=== PATIENT | male | born 1960 | race Caucasian/White ===

== ENCOUNTER 2025-09-23 13:44 | Observation (INO) | payer OTHER, MEDICARE, SELFPAY ==
--- NOTE | 2025-09-23 13:50 | XR_ITS ---
EXAMINATION: AP chest single view TECHNIQUE: Portable AP sitting chest single view Date and time: September 23, 2025, 1413 hours INDICATIONS: Shortness of breath today. FINDINGS: Mild prominence left ventricle. No pneumonia or pulmonary edema. Lordotic chest IMPRESSION: No active disease
--- NOTE | 2025-09-23 13:50 | EKG_ITS ---
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
--- NOTE | 2025-09-23 13:50 | XR_ITS ---
Examination: CTA carotids with intravenous contrast CTA brain, head with intravenous contrast. 2-D sagittal, coronal reconstructions. 3-D reconstructions. Exam date and time: September 23, 2025, 1406 hours INDICATIONS: Stroke alert today, onset focal neurologic deficit CTDI: vol (mGy) 25.3 DLP: (mGycm) 455 Technique: Multiple CTA axial brain, head carotid images post intravenous contrast injection 75 cc, [id number]. 2-D sagittal, coronal reconstructions. 3-D reconstructions, 3-D post processing including vascular maximum intensity projection images. Low dose protocols were performed. One or more of the following dose reduction techniques were used; automated exposure control, adjustment of the mA and/or KV according to patient size, use of iterative reconstruction technique. Findings: No common carotid carotid bifurcation or significant internal carotid artery stenoses Dominant left vertebral artery in the neck with no significant stenoses Intracranial vertebral arteries basilar artery posterior cerebral branches fill with no large vessel occlusions Petrous Dexasol portions internal carotid arteries M1 segments middle cerebral arteries middle cerebral artery trifurcation vessels and anterior cerebral arteries fill with no large vessel occlusions IMPRESSION: No significant neck arterial stenoses No cerebral large vessel arterial occlusions or thrombus
--- NOTE | 2025-09-23 13:50 | XR_ITS ---
Examination: CT brain head without contrast. 2-D sagittal coronal reconstructions Date and time of exam: September 23, 2025, 1357 hours INDICATIONS: Stroke alert, onset focal neurologic deficit including left-sided facial numbness and left arm weakness onset today CTDI: vol (mGy): 53.8 DLP: (mGycm): 1004 Technique: Multiple CT axial sections of the brain have been obtained, 5 mm slice thickness. Contrast has not been administered. 2-D sagittal, coronal reconstructions have been obtained Low dose protocols were performed. One or more of the following dose reduction techniques were used; automated exposure control, adjustment of the mA and/or KV according to patient size, use of iterative reconstruction technique. Findings: No significant ventricular enlargement. Intra-axial or extra-axial hemorrhage density is not seen. No mass effect or midline shift Basal cisterns are not remarkable. Fourth ventricle is midline. Cranial vault intact. Impression: Negative for acute hemorrhage, mass effect or midline shift
--- NOTE | 2025-09-23 13:51 | EDNOTE_ITS ---
<Statement entered by Stacia Blandon MD - 09/30/25 14:17> As co-signing physician, I was present and available for consult prn. I concur with the plan and care as documented by the midlevel provider. ED General RME/HPI General Chief complaint: Weakness Stated complaint: NUMBNESS L) ARM, FACE, TONGUE, WEAKNESS Time Seen by Provider: 09/23/25 13:49 Arrival date/time: 09/23/25 13:44 CC: Left facial numbness tingling left arm numbness and tingling onset at 1335, upon initial assessment at 1351 the majority has resolved. Patient describes the left arm also as heaviness . This has resolved facial tingling has resolved but still has residual tingling in the left arm. No prior history of similar events has a history of hypertension hypercholesterolemia and diabetes does not take blood thinners. The patient's 's report the patient having significant confusion while driving losing directions in an area that they are well familiar with all within 5 to 6 minutes prior to pulling over and telling his he need to go to the hospital. continues to report the patient made at approximately 5 attempts on the phone after giving up driving to a phone number that is typically easy for him to dial. Related Data Home Medications ?Medication ?Instructions ?Recorded ?Confirmed atenolol 25 mg tablet (Tenormin) 25 mg PO HS #0 tabs 0 06/03/17 02/18/23 loratadine 10 mg tablet (Claritin) 10 mg PO HS #0 tabs 06/03/17 02/18/23 inulin 2 gram chewable tablet 2 tab PO HS ##0 10/14/17 02/18/23 (Fiber Gummies) metformin 500 mg tablet 500 mg PO BID 01/26/2202/18 pravastatin 10 mg tablet 10 mg PO DAILY 01/26/2201/28 cholecalciferol (vitamin D3) 25 25 mcg PO QDAY 2 02/18/23 mcg (1,000 unit) capsule (Vitamin D3) omega 9-nlq-rto-fish oil 1,000 mg 1 cap PO QDAY 02/18/23 (120 mg-180 mg) capsule (Fish Oil) Previous Rx's ?Medication ?Instructions ?Recorded pantoprazole 40 mg tablet,delayed 40 mg PO BID #60 tab s 08/07/22 release (Protonix) Allergies Allergy/AdvReac Type Severity Reaction Status Date / Time prochlorperazine Allergy Severe TONIC Verified 09/23/25 13:45 CLONIC MUSCLE SPASM Review of Systems Review of Systems Narrative Review of Systems: GEN: No fever, no chills, no weight loss EYES: No discharge, no visual changes, no pain HEENT: No ear pain, no congestion, no sore throat PULM: No shortness of breath, no cough, no congestion CV: No chest pain, no dyspnea on exertion, no palpitations GI: No nausea, no vomiting, no diarrhea, no pain, no constipation : No frequency, no urgency, no dysuria MUSC/SKEL: No joint pain, no back pain SKIN: No rash PSYCH: No hallucinations, no depression HEME/LYMPH: No easy bleeding or bruising tendencies NEURO: No weakness, no headache, no dizziness, no blurred vision, no balance issues Past Medical History Past Medical History NEUROLOGIC: Positive Neurological Disorders and Meningitis; Negative Seizures CARDIAC: Positive Cardiac Disorders, Hypercholesterolemia and Hypertension; Negative Congestive Heart Failure, Edema, Cellulitis or Varicose Veins RESPIRATORY: Negative Chronic Obstructive Pulmonary Disease (COPD) or Sleep Ap alexandrea GASTROINTESTINAL: Positive Gastrointestinal Disorders, Gall Bladder Disease and Ulcer; Negative Hepatitis GENITOURINARY: Positive Genitourinary Disorders and Kidney Stones; Negative Renal Disease MUSCULOSKELETAL: Positive Musculoskeletal Disorders and Fractures ENDOCRINE: Negative Endocrine Disorders, Diabetes Mellitus Type 1 or Diabetes Mellitus Type 2 HEMATOLOGIC: Negative Blood Disorders OTHER HISTORY: Positive Hospitalization, Chicken Pox, Measles and Mumps; Negative Autoimmune Disease, Shingles, Falls, Blood Transfusions, Anesthesia Reactions, Chemotherapy, Radiation Therapy, MRSA or Cancer Family History FAMILY HISTORY: Positive Family Respiratory Disorders, Family Cardiac Disorders and Family Surgery; Negative Family Psychiatric Problems, Family Gastrointestinal Problems, Family Cancer or Family Anesthesia Reaction Surgical History SURGICAL: Negative Pacemaker Social History SMOKING STATUS: Never smoker ED Exam Narrative Physical exam: [General: Not in any acute distress Head normocephalic HEENT: Eyes pupils are PERRLA EOMs are intact mouth pink dry membranes uvula is midline swallow symmetrical phonation is normal. Nose no rhinorrhea all other subsystems of HEENT are within acceptable limits Neck is supple nontender, no JVD no edema Chest equal chest rise nontender to palpation Respiratory: Clear to auscultation no wheezes crackles or rubs CV: Rate rhythm is regular no murmurs rubs or clicks Abdomen is soft nontender no masses positive bowel sounds all 4 quadrants Back: No CVA tenderness no spinous process tenderness from cervical spine thoracic and lumbar spine Skin: Intact no petechiae rash induration ulceration or crepitus Extremities: Moving all extremity against resistance cap refill less than 2 seconds neurosensory intact Neuro: Awake alert oriented x3 Glascow coma 15 no focal deficits] Course Course Course Narrative: Tell your neurologist was concerned that this was a seizure once the patient he had MRI EEG no aspirin and no tPA Reassessment of the patient at 1500, the the patient is returned to baseline with no complaints of tingling or numbness in the left face or left hand, also no confusion has been observed by at bedside. Will admit for stroke Quality Measures none Orders Category Date Time Status Bedside Blood Glucose NOW Care 09/23/25 13:50 Active Crate Builder NOW Care 09/23/25 13:50 Active Continuous Pulse Oximetry NOW Care 09/23/25 13:50 Completed EKG (ED ONLY) *Do not use* NOW Care 09/23/25 13:50 Completed In and Out Catheter NEEDED Care 09/23/25 13:50 Active Insert IV NOW Care 09/23/25 13:50 Active NIH Stroke Scale now Care 09/23/25 13:50 Active NPO NOW Care 09/23/25 13:50 Active Nurse Swallow Screen x1 Care 09/23/25 13:50 Active Consult to Neurology / Tele-Neurology Routine Cons 09/23/25 13:[address] angio stroke protocol Stat Exams 09/23/25 13:[address] stroke protocol Stat Exams 09/23/25 13:50 Completed EKG (ED Only) Stat Exams 09/23/25 13:50 Draft XR chest 1V portable Stat Exams 09/23/25 13:50 Completed CBC Stat Lab 09/23/25 14:13 Completed Comprehensive Metabolic Panel Stat Lab 09/23/25 14:13 Completed Drug Screen,Urine Stat Lab 09/23/25 14:38 Received HCG Titer if Positive Stat Lab 09/23/25 14:13 Completed Magnesium Stat Lab 09/23/25 14:13 Completed Partial Thromboplastin Time Stat Lab 09/23/25 14:13 Completed Prothrombin Time with INR Stat Lab 09/23/25 14:13 Completed Troponin I Stat Lab 09/23/25 14:13 Completed Urinalysis, C/S if Indicated Stat Lab 09/23/25 14:38 Completed Labetalol IV [Trandate IV] Med 09/23/25 13:50 Active 10 mg IVP Q15M PRN Ondansetron Inj [Zofran Inj] Med 09/23/25 13:50 Active 4 mg IVP Q4HR PRN Oxygen Delivery NOW RT 09/23/25 13:50 Active Vital Signs Vital signs: Vital Signs Pulse Rate 92 09/23/25 14:08 Respiratory Rate 20 09/23/25 14:08 Blood Pressure 161/96 H 09/23/25 14:08 Pulse Oximetry (%) 95 09/23/25 14:08 Oxygen Delivery Method Room Air 09/23/25 14:08 Discharge Plan Plan Patient Disposition: Other Care w/in Hosp ([facility]) Prescriptions/Referrals Prescriptions/Med Rec: No Action atenolol [Tenormin] 25 MG tablet 25 mg PO HS Qty: 0 loratadine [Claritin] 10 MG tablet 10 mg PO HS Qty: 0 Fiber Gummies 2 GM tablet,chewable 2 tab PO HS Qty: 0 metformin 500 mg Tablet 500 mg PO BID pravastatin 10 mg Tablet 10 mg PO DAILY cholecalciferol (vitamin D3) [Vitamin D3] 25 mcg (1,000 unit) Capsule 25 mcg PO QDAY pantoprazole [Protonix] 40 mg tablet,delayed release (DR/EC) 40 mg PO BID Qty: 60 0RF omega 9-qdk-rkr-fish oil [Fish Oil] 1,000 mg (120 mg-180 mg) Capsule 1 cap PO QDAY Referrals: No Primary/Family,Physician [Primary Care Provider] - In 1 week Problem List Clinical Impression: Brain TIA Patient/Caregiver Discharge Instructions Print Language: Swazi Stand Alone Forms: Disha Award Info., Patient Portal Info Letter 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 Labs Lab(s) Interpretation(s): CBC shows no leukocytosis mild anemia with a hemoglobin of 12.1 and hematocrit of 34.8. No thrombocytopenia Coags show a PT of 13.7 INR 1.3 PTT of 27.3 CMP shows potassium 3.3 chloride of 110 BUN is 7 calcium of 7.6 no transaminitis or T. bili elevation. Urine is negative for UTI Imaging Imaging interpretation: interpreted by me Imaging Interpretation(s): CT of the head is negative CTA of the head is negative for LVO. Chest x-ray is unremarkable. Medication Administration(s) Medication Administration History Labetalol HCl (Labetalol Inj 5 Mg/Ml Vial 20 Ml) 10 mg IVP Q15M PRN PRN Reason: HYPER Ondansetron HCl (Ondansetron Inj 2 Mg/Ml Inj 2 Ml) 4 mg IVP Q4HR PRN PRN Reason: NAUSEA OR VOMITING Stop: 10/23/25 13:49
--- NOTE | 2025-09-23 13:52 | PC.NURSE ---
STROKE ALERT CALLED [phone].
--- NOTE | 2025-09-23 13:54 | PC.NURSE ---
Dr. Livier Souza on tele monitor talking with pt. Pt. answering questions appropriately.
--- NOTE | 2025-09-23 13:55 | PC.NURSE ---
Pt. here taken straight to CT via gurney from triage, pt. states he was just driving and felt left arm heaviness, tingling and numbness to the left side of his face, pt. states no issues with left leg, pt.'s passenger states pt. was confused driving and was supposed to drive home and was headed away from home.
[2025-09-23 14:08] VITALS: BP 161/96; PULSE 92; RESP 20; O2SAT 95
--- NOTE | 2025-09-23 14:11 | PC.NURSE ---
PATIENT RETURNED FROM CT AT THIS TIME
--- NOTE | 2025-09-23 14:20 | PD.TNEURO ---
Tele Neuro Consultation Consultation Date 09/23/25 Most Recent Vital Signs Last Vital Signs Pulse 92 09/23/25 14:08 Resp 20 09/23/25 14:08 BP 161/96 H 09/23/25 14:08 Pulse Ox 95 09/23/25 14:08 O2 Del Method Room Air 09/23/25 14:08 Consultation Narrative [facility] Tele[facility]rology Consult Services Patient Name:???TORRIE DAVIS Date of :???1960 Identification Number:??? Date of Service:???09/23/2025 13:49:31 Diagnosis:?G45.9 - Transient cerebral ischemic attack, unspecified Impression: ?Symptoms are suggestive of a possible right cortical focal seizure, given the presence of a metallic taste (aura) and transient confusion before and after the episode. TIA also remains a possibility. ? ?I recommend brain MRI to evaluate for any acute cortical lesion or underlying structural abnormality. ? ?I recommend EEG to assess for epileptiform activity and support the diagnosis of a focal seizure. ? ?CT head and CTA showed no acute intracranial abnormality and no large vessel occlusion. ? ?Patient is not a candidate for TNK as symptoms are improving and presentation is not consistent with disabling stroke. ? ?No aspirin or Plavix recommended at this time. ? ?Blood pressure is normal; permissive hypertension is not indicated. Our recommendations are outlined below. Recommendations: ? Stroke/Telemetry Floor ? Neuro Checks ? Bedside Swallow Eval ? DVT Prophylaxis ? IV Fluids, Normal Saline ? Head of Bed 30 Degrees ? Euglycemia and Avoid Hyperthermia (PRN Acetaminophen) Advanced Imaging: CTA Head and Neck Completed. LVO:No Patient is not a candidate for ANTIONE Metrics: Last Known Well: 09/23/2025 13:15:00 Dispatch Time: 09/23/2025 13:49:31 Arrival Time: 09/23/2025 13:55:00 Initial Response Time: 09/23/2025 13:51:34Symptoms: left tingling . Initial patient interaction: 09/23/2025 14:01:01 NIHSS Assessment Completed: 09/23/2025 14:11:41Patient is not a candidate for Thrombolytic. Thrombolytic Medical Decision: 09/23/2025 14:11:44Patient was not deemed candidate for Thrombolytic because of following reasons: Resolved symptoms . CT Head: I personally reviewed all the CT images that were available to me and it showed: no acute changes Primary Provider Notified of Diagnostic Impression and Management Plan on: 09/23/2025 14:05:39 History of Present Illness:Patient is a 64 year old Male. Patient was brought by private transportation with symptoms of left tingling . The patient experienced an acute onset of neurological symptoms approximately 20 minutes prior to evaluation, which began while driving. The episode was characterized by left arm heaviness, tingling of the left side of the face, and a metallic taste in the mouth. These symptoms were transient and have been improving at the time of assessment. The patient also demonstrated some confusion during and after the episode, which has since begun to resolve. There was no report of headache, visual changes such as blurred vision, or other systemic symptoms. The presence of both motor and sensory symptoms lateralized to the left, along with a positive sensory aura (metallic taste), and postictal confusion raises concern for a possible focal neurological event. The patient has a medical history significant for hypertension and diabetes mellitus, which are vascular risk factors; however, the clinical picture is not typical for acute ischemic stroke. There were no signs of ongoing neurologic deficit on examination at the time of consult, and the patient's blood pressure was within normal range. No history of similar episodes was noted, and no seizure history was mentioned. There were no signs of trauma or other secondary causes identified. Past Medical History: ?Hypertension ?Diabetes Mellitus ?There is no history of Atrial Fibrillation ?There is no history of Stroke ?There is no history of Seizures Medications: No Anticoagulant use? No Antiplatelet use Reviewed EMR for current medications Allergies:? Reviewed Social History: Patient Is: Smoking: No Alcohol Use: No Drug Use: No Family History: There is no family history of premature cerebrovascular disease pertinent to this consultation ROS : 14 Points Review of Systems was performed and was negative except mentioned in HPI. Past Surgical History: There Is No Surgical History Contributory To Today?s Visit Examination: BP(161/96),?Pulse(85),?Blood Glucose(125) 1A: Level of Consciousness - Alert; keenly responsive?+ 0 1B: Ask Month and Age - Both Questions Right?+ 0 1C: Blink Eyes & Squeeze Hands - Performs Both Tasks?+ 0 2: Test Horizontal Extraocular Movements - Normal?+ 0 3: Test Visual Sutton - No Visual Loss?+ 0 4: Test Facial Palsy (Use Grimace if Obtunded) - Normal symmetry?+ 0 5A: Test Left Arm Motor Drift - No Drift for 10 Seconds?+ 0 5B: Test Right Arm Motor Drift - No Drift for 10 Seconds?+ 0 6A: Test Left Leg Motor Drift - No Drift for 5 Seconds?+ 0 6B: Test Right Leg Motor Drift - No Drift for 5 Seconds?+ 0 7: Test Limb Ataxia (FNF/Heel-Lozano) - No Ataxia?+ 0 8: Test Sensation - Normal; No sensory loss?+ 0 9: Test Language/Aphasia - Normal; No aphasia?+ 0 10: Test Dysarthria - Normal?+ 0 11: Test Extinction/Inattention - No abnormality?+ 0 NIHSS Score:?0 Pre-Morbid Modified Q[place]man Scale: 0 Points = No symptoms at all Spoke with :?Dr. Banuelos This consult was conducted in real time using interactive audio and video technology. Patient was informed of the technology being used for this visit and agreed to proceed. Patient located in hospital and provider located at home/office setting. Patient is being evaluated for possible acute neurologic impairment and high probability of imminent or life-threatening deterioration. I spent total of 40 minutes providing care to this patient, including time for face to face visit via telemedicine, review of medical records, imaging studies and discussion of findings with providers, the patient and/or family. Dr Livier Souza [facility] For Inpatient follow-up with [facility] physician please call [facility] at . As we are not an outpatient service for any post hospital discharge needs please contact the hospital for assistance. If you have any questions for the [facility] physicians or need to reconsult for clinical or diagnostic changes please contact us via [facility] at . Non-radiologist review of imaging performed to assist with emergent clinical decision-making. Remote physician workstations do not possess the same resolution, calibration, or diagnostic capabilities as hospital-based radiology reading stations, and formal radiologist read is necessary. Signature :Rob Souza
[2025-09-23 14:23] LABS: Basophils # (Auto) 0.1 Thou/mm3 (0.0-0.2); Basophils % (Auto) 1 % (0-2.5); Eosinophils # (Auto) 0.3 Thou/mm3 (0.0-0.5); Eosinophils % (Auto) 4 % (0-10); Hematocrit 34.8 % (41.0-53.0); Hemoglobin 12.1 g/dL (13.5-16.0); Immature Granulocytes Auto 0.03 Thou/mm3 (0.00-0.00); Lymphocytes # (Auto) 1.4 Thou/mm3 (1.0-4.8); Lymphocytes % (Auto) 18 % (10-50); Mean Corpuscular HGB Conc 34.8 g/dl (31.0-37.0); Mean Corpuscular Hemoglobin 31.0 pg (25.0-35.0); Mean Corpuscular Volume 89 fL (80-100); Monocytes # (Auto) 0.9 Thou/mm3 (0.0-0.8); Monocytes % (Auto) 11 % (0-12); Neutrophils # (Auto) 4.9 Thou/mm3 (1.8-7.7); Neutrophils % (Auto) 65 % (37-80); Nucleated Red Blood Cell # 0.00 Thou/mm3 (0.00-0.00); Nucleated Red Blood Cell % 0 /100 WBC (0); Platelet Count 205 Thou/mm3 (140-440); RDW Standard Deviation 39.8 fL (35.1-43.9); Red Blood Count 3.90 Miln/mm3 (4.50-5.90); White Blood Count 7.5 Thou/mm3 (3.8-10.6)
[2025-09-23 14:30] VITALS: BP 147/92; PULSE 96; RESP 17; TEMP 36.8; O2SAT 95
--- NOTE | 2025-09-23 14:31 | PC.NURSE ---
Pt. states yesterday he got the Covid vaccine and PNA vaccine. Pt. states when he felt the numbness and tingling to his face he had a metal taste in his mouth. Pt.'s spouse states prior to the numbness and tingling pt. was confused while driving.
[2025-09-23 14:36] LABS: INR 1.3 (0.9-1.3); Partial Thromboplastin Time 27.3 Seconds (22.0-36.0); Prothrombin Time 13.7 Seconds (9.0-12.2)
[2025-09-23 14:44] LABS: Collection Type, Urine Clean Catch; RBC,Urine 0 /hpf (0-3); Squamous Epithelial Cell,Urine 0 /hpf (0-5)
[2025-09-23 14:45] LABS: Alanine Aminotransferase 39 U/L (10-49); Albumin, Serum 3.3 gm/dL (3.4-4.8); Albumin/Globulin Ratio 1.7 (1.2-2.2); Alkaline Phosphatase 69 U/L (46-116); Anion Gap 9 (7-16); Aspartate Amino Transferase 23 U/L (0-34); BUN/Creatinine Ratio 7 Ratio (12-20); Bilirubin,Total 0.7 mg/dL (0.3-1.2); Blood Urea Nitrogen 7 mg/dL (9-23); Calcium 7.6 mg/dL (8.3-10.6); Calcium (Corrected) 8.2 mg/dL (8.5-10.1); Carbon Dioxide 22.2 mMol/L (20.0-31.0); Chloride 110 mMol/L (98-107); Creatinine (Component) 1.0 mg/dL (0.6-1.3); Globulin 1.9 gm/dL (2.3-3.5); Glucose 96 mg/dL (74-106); Magnesium 1.5 mg/dL (1.6-2.6); Osmolality,Calculated 279 (275-295); Potassium 3.3 mMol/L (3.4-5.1); Sodium 141 mMol/L (136-145); Total Protein 5.2 gm/dL (5.7-8.2); Troponin I < 0.002 ng/mL (0.0-0.045); eGFR > 60 See Note
[2025-09-23 14:50] LABS: HCG Titer if Positive Negative
[2025-09-23 14:53] LABS: Bilirubin,Urine Negative (Negative); Blood,Urine Negative (Negative); Clarity,Urine Clear (Clear/Hazy); Color,Urine Colorless (Lt Yel-Yel); Culture Indicated,Urine Not Indicated; Glucose, Urine Negative (Negative); Ketones,Urine Negative (Negative); Leukocyte Esterase,Urine Negative (Negative); Nitrite,Urine Negative (Negative); PH,Urine 6.0 (5.0-7.0); Protein,Urine Negative (Neg - Trace); Specific Gravity,Urine 1.020 (1.001-1.035); Urobilinogen,Urine Negative mg/dL (0.0-1.0); WBC,Urine < 1 /hpf (0-5)
[2025-09-23 14:55] VITALS: BP 137/82; PULSE 88; RESP 17; TEMP 36.7; O2SAT 95
--- NOTE | 2025-09-23 16:01 | ESHP_ITS ---
<Statement entered by Pranav Cage MD - 09/23/25 17:57> I saw and examined patient personally and supervised PGY 1 resident, Dr. Holley with formulating a management plan. I agree with the documentation with the exceptions as listed below. Patient is 64-year-old male past medical history significant for primary hypertension, MASLD, hiatal hernia and GI bleed presented to ED with a chief complaint of confusion and left arm paresthesia. Patient will be admitted for stroke workup. Problem list: 1. CVA 2. Primary hypertension 3. MASLD 4. Hiatal hernia 5. History of GI bleed 6. Obesity class I 7. Hyperlipidemia According to patient's partner, he was driving in an area of town that he knew very well when he began getting lost and appeared confused. Following that he endorsed left arm heaviness, paresthesia which spread to his left face along with a metallic taste in his mouth. He stopped the car came out and entered the passenger seat after which his partner drove him directly to the emergency department. CT brain and CTA were negative for any acute hemorrhage or LVO. K3.3, Mg 1.5, Hb 12.1, PLT 205, PT 13.7, corrected Ca 8.2. Differentials would include TIA, seizures, electrolyte disturbances. Started patient on high intensity atorvastatin 40 mg p.o. at bedtime. Currently pending MRI stroke protocol, echo with bubble study, PT, speech therapy and in-house neurology recommendations. Plan of care discussed with Attending Dr. Robin Cage MD PGY 2 Disclaimer: This note was dictated by speech recognition. Minor errors in public address system installer may be present due to voice recognition software. Documentation for date of: 09/23/25 HPI History of Present Illness Chief complaint: confusion, right sided-paresthesia History of present illness: John Paul Boyd is a 64-year-old male with a PMH of hypertension (2006) on atenolol, fatty liver disease (2019) on metformin, and hypercholesterolemia on pravastatin who presents today with a chief complaint of left arm paresthesia and heaviness with subsequent left face paresthesia and metallic taste in the mouth. He reports that these symptoms began earlier in the day at around 1300 while he was driving in a car with his . Apparently, patient experienced loss of sensation in his left hand which prompted him to lift his left arm from the wheel and attempt to clench and unclench his fist before the above symptoms occurred, lasting a duration of around 5 minutes. The symptoms have since resolved at time of interview and patient denies any headache, visual changes, or residual neurological deficits. He also denies any prior episodes of similar presentation. Per , who called during the interview, patient also seemed confused prior to onset of symptoms above and seem to lose his sense of direction in an area that they were well familiar with while driving before pulling over to tell his to take him to the hospital. also endorses that the patient made approximately 5 attempts on the phone after he gave up driving to a phone number that is typically easy for him to dial. Patient himself denies remembering any period of altered mentation. PMH: As above PSH: Appendectomy in 1975, fistulectomy for anal fissure in 2020 Medications: P.o. pravastatin 20 mg nightly, p.o. metformin 500 mg twice daily, p.o. atenolol 25 mg nightly, p.o. loratadine 10 mg every morning as needed Allergies: Prochlorperazine which caused tonic-clonic muscle spasm FH: Father had stroke in his late 60s and then had an [place] at the age of 75 before dying, mother has COPD as a lifelong smoker and is still alive at 82 years old SH: Lives in [place] in a house with his , social drinker, smoked an average of a half a pack a day from age [age], and no recreational drug use history In the ED, vitals showed: BP 161/96 HR 92 RR 20 Temp 98.3 SpO2 95% on room air CBC showed hemoglobin 12.1 but was otherwise WNL. Coagulation panel showed PT 13.7, INR 1.3, and APTT 27.3. CMP showed potassium 3.3, chloride 110, corrected calcium 8.2, magnesium 1.5, and normal procalcitonin 0.10. UA was bland with specific gravity 1.020. UDS was completely negative. Serological studies was negative for qualitative hCG. Imagin/26 CXR was unremarkable. 09/[address] was negative for acute hemorrhage, mass effect, or midline shift. 09/23 head/neck CTA was negative for significant neck arterial stenoses, cerebral large vessel arterial occlusions, or thrombus. 09/23 EKG showed normal sinus rhythm of HR 87 and normal QTc 435. In the ED, patient was given p.o. potassium chloride 40 mEq x 1 and IV magnesium sulfate 4 g x 1; he was also started on p.o. Lipitor 40 mg nightly. Patient was admitted for the work-up and management of neurological symptoms concerning for CVA or seizure. Neurology (Dr. Rosas) was consulted and is closely following the case. Review of Systems Review of Systems Systems Reviewed: All systems reviewed, normal except as documented Exam Vital Signs Temp Pulse Resp BP Pulse Ox O2 Del Method 98.1 F 88 17 137/82 H 95 Room Air 09/23/25 14:55 09/23/25 14:55 09/23/25 14:55 09/23/25 14:55 09/23/25 14:55 09/23/25 14:55 Narrative Exam Physical Exam: General: Alert and oriented x 3, no acute distress. Skin: Warm, dry, intact, no obvious rash. Head: Normocephalic, atraumatic. Eye: Normal conjunctiva, PERRL. Anicteric. Throat: Oral mucosa moist. Cardiovascular: Slightly tachycardic rate and normal rhythm, no murmur, normal peripheral perfusion, no edema. Respiratory: Lungs are clear to auscultation, respirations non labored, no crackles, no wheezing. Gastrointestinal: Soft, nontender, non-distended. Psychiatric: Cooperative, appropriate affect. Neuro: Mental status: Alert, oriented, appropriately responding to commands. Speech/Language: Speech fluent, no word finding difficulty or paraphasic errors observed. Language-comprehension, repetition and naming intact. No dysarthria noted. Memory: Grossly recent and remote intact. Cranial Nerves: II: No visual deficits and visual ramirez full to confrontation. Pupils 3-5 mm size BL round, reactive to light. III, IV, : EOMI, no nystagmus, no ptosis, no APD, smooth pursuit without saccadic intrusion, conjugate horizontal gaze intact. V: Gross sensation intact in V1, V2 and V3 distribution to crude touch. Jaw strength normal. VII: No facial asymmetry, able to smile symmetrically and BL good eye closure. VIII: Hearing intact in both ears but some degree of presbycusis of the right ear. IX, X: Symmetrical palate elevation, uvula in midline. XI: Symmetrical head rotation and shoulder shrug. IX, XII: Midline tongue protrusion. No fasciculations or atrophy noted. Sensory examination Crude touch in bilateral upper and lower extremity grossly intact. Motor examination No drift in bilateral upper extremity 5/5 strength in bilateral upper extremity 5/5 strength in bilateral lower extremity 2+ reflexes in biceps, triceps, brachioradialis, patellar, Achilles No Page's or ankle clonus Coordination Fwveal-ak-flqr test and rpjk-em-itdd test performed without any difficulty. No dysmetria. Examination: BP(161/96),?Pulse(85),?Blood Glucose(125) 1A: Level of Consciousness - Alert; keenly responsive?+ 0 1B: Ask Month and Age - Both Questions Right?+ 0 1C: Blink Eyes & Squeeze Hands - Performs Both Tasks?+ 0 2: Test Horizontal Extraocular Movements - Normal?+ 0 3: Test Visual Ramirez - No Visual Loss?+ 0 4: Test Facial Palsy (Use Grimace if Obtunded) - Normal symmetry?+ 0 5A: Test Left Arm Motor Drift - No Drift for 10 Seconds?+ 0 5B: Test Right Arm Motor Drift - No Drift for 10 Seconds?+ 0 6A: Test Left Leg Motor Drift - No Drift for 5 Seconds?+ 0 6B: Test Right Leg Motor Drift - No Drift for 5 Seconds?+ 0 7: Test Limb Ataxia (FNF/Heel-Lozano) - No Ataxia?+ 0 8: Test Sensation - Normal; No sensory loss?+ 0 9: Test Language/Aphasia - Normal; No aphasia?+ 0 10: Test Dysarthria - Normal?+ 0 11: Test Extinction/Inattention - No abnormality?+ 0 NIHSS Score:?0 Results: Labs 09/24/25 05:43 09/24/25 05:43 Labs: Short CBC 09/23/25 Range/Units 14:13 WBC 7.5 (3.8-10.6) Thou/mm3 Hgb 12.1 L (13.5-16.0) g/dL Hct 34.8 L (41.0-53.0) % Plt Count 205 (140-440) Thou/mm3 BMP 09/23/25 14:13 Sodium 141 Potassium 3.3 L Chloride 110 H Carbon Dioxide 22.2 BUN 7 L Creatinine 1.0 Glucose 96 Calcium 7.6 L Cardiac Enzymes 09/23/25 Range/Units 14:13 Troponin I < 0.002 (0.0-0.045) ng/mL Liver Function 09/23/25 Range/Units 14:13 Total Bilirubin 0.7 (0.3-1.2) mg/dL AST 23 (0-34) U/L ALT 39 (10-49) U/L Alkaline Phosphatase 69 (46-116) U/L Albumin 3.3 L (3.4-4.8) gm/dL Urine 09/23/25 Range/Units 14:38 Urine Color Colorless A (Lt Yel-Yel) Urine Clarity Clear (Clear/Hazy) Urine pH 6.0 (5.0-7.0) Ur Specific Byron 1.020 (1.001-1.035) Urine Protein Negative (Neg - Trace) Urine Glucose (UA) Negative (Negative) Quality Measures Quality Measures none Advance care planning discussed with:: patient Medications Home Medications and Allergies Home Medications ?Medication ?Instructions ?Recorded ?Confirmed ?Type atenolol 25 mg tablet (Tenormin) 25 mg PO HS #0 tabs 0 06/03/17 09/23/25 History loratadine 10 mg tablet (Claritin) 10 mg PO DAILY #0 t abs 06/03/17 09/23/25 History inulin 2 gram chewable tablet 2 tab PO HS ##0 10/14/17 09/23/25 History (Fiber Gummies) metformin 500 mg tablet 500 mg PO BID 01/26/2209/23 History cholecalciferol (vitamin D3) 25 25 mcg PO .THREE TIMES A WEEK 08/06/22 09/23/25 History mcg (1,000 unit) capsule (Vitamin D3) Allergies Allergy/AdvReac Type Severity Reaction Status Date / Time prochlorperazine Allergy Severe TONIC Verified 09/23/25 13:45 CLONIC MUSCLE SPASM Visit Medications Acetaminophen (Acetaminophen 325 Mg Tablet) 650 mg PO Q6H PRN PRN Reason: Fever >100 or pain 1-3 Stop: 10/23/25 15:51 Albuterol/Ipratropium (Albuterol/Ipratropium (Duoneb) Rt Selina 3 Ml Nebu) 3 ml INH Q2HR PRN PRN Reason: SHORTNESS OF BREATH OR WHEEZE Stop: 10/23/25 15:51 Labetalol HCl (Labetalol Inj 5 Mg/Ml Vial 20 Ml) 10 mg IVP Q15M PRN PRN Reason: HYPER Ondansetron HCl (Ondansetron Inj 2 Mg/Ml Inj 2 Ml) 4 mg IVP Q4HR PRN PRN Reason: NAUSEA OR VOMITING Stop: 10/23/25 13:49 Sennosides (Senna Tablet) 1 tab PO QDAY DUSTIN; Protocol Stop: 10/23/25 15:59 Assessment & Plan Plan John Paul Boyd is a 64-year-old male with a PMH of hypertension (2006) on atenolol, fatty liver disease (2019) on metformin, and hypercholesterolemia on pravastatin who presents today with a chief complaint of left arm paresthesia and heaviness with subsequent left face paresthesia and metallic taste in the mouth. Patient was admitted for the work-up and management of neurological symptoms concerning for CVA or seizure. Neurology (Dr. Rosas) was consulted and is closely following the case. # CVA versus seizure, positive for focal neurological deficits on the left side Patient initially presented with a reported prodrome of confusion (per ) before experiencing left arm paresthesia and heaviness with subsequent left face paresthesia and metallic taste in the mouth that went on for around 5 minutes that spontaneously resolved by time of interview Denied headache, visual changes, residual neurological deficits, or prior episodes of similar presentation Head CT negative for acute hemorrhage, mass effect, or midline shift. Head/neck CTA negative for significant neck arterial stenoses, cerebral large vessel arterial occlusions, or thrombus. ACSVD Score: 18.5% risk of CV event in next 10 years ([id number]-intensity statin recommended due to greater than 7.5% risk) , NIHSS Score: 0 TIA is more likely than CVA at this moment due to lack of residual neurologic deficits DDx: focal onset aware seizures, migraine aura, metabolic encephalopathy Dx: -Ordered head MRI, results pending -Ordered echocardiogram with bubble study, results pending -Ordered EEG awake and drowsy, results pending -Ordered lipid panel, results pending -Ordered hemoglobin A1c, results pending -Ordered TSH, results pending Rx: -PO atorvastatin 40 mg qHS -PO/WA acetaminophen 650 mg q6HR prn for T > 100.3 -IV labetalol 10 mg q15MIN -Neuro check q4HR -Seizure precautions -Strict I&O -Ordered PT referral -Ordered speech evaluation referral -Neurology consulted, appreciate recommendations #Electrolyte derangements #Hypokalemia #Hypocalcemia #Hypomagnesemia Asymptomatic at time of interview Dx: -09/23 admission potassium 3.3, corrected calcium 8.2, magnesium 1.5 Rx: -Replete electrolytes as appropriate #Primary hypertension 09/23 admission BP 161/96, down-trended to 140/80s on the same day On home atenolol Rx: -Consider restarting home atenolol Chronic Medical Diagnoses #MASLD, i/s/o obesity class I BMI 32.1, on home metformin Rx: -Outpatient management #Hiatal hernia Discovered by 02/18/23 EGD Rx: -Outpatient management #History of GI bleed 08/06/22 admission for bouts of hematemesis, resolved Rx: -CTM CBC #Obesity class I Patient's BMI is 32.1 On home metformin and pravastatin Dx: -Lipid panel, HgbA1c, TSH as above Rx: -PO atorvastatin 40 mg qHS Hospital Management: Disposition: Admitted to [facility] for the work-up and management of neurological symptoms concerning for CVA or seizure. Diet: NPO GI Prophylaxis: None Bowel Prophylaxis: PO Senna 1 tab qD DVT Prophylaxis: Not Indicated (Stroke Protocol) CODE STATUS: Full Code I have examined the patient and conferred with my attending, Dr. Kelly, and my senior resident, Dr. Cage, regarding them. Joselito Holley DO PGY-1 Internal Medicine Attending Provider Attestation/Addendum I have discussed and was present for the essential components of the history, physical examination, diagnosis, and treatment plan with the resident. I agree with the patient's care as documented by the resident and amended herein by me. Cristobal Kelyl DO. Although this document has been carefully reviewed, there may still be some phonetic and other typographical errors. These errors are purely grammatical due to imperfections in the software program and should not be construed in any way to compromise the substance of the patient's medical care during this visit.
--- NOTE | 2025-09-23 16:02 | ECHO_ITS ---
Transthoracic Echo Report Ht (in): 66 Wt (lb): 198 Exam Location: [facility] Status: Inpatient Physical Science Technician: Rina Unger Indications: Procedure Performed: BP: 121 / 68 HR: 80 MEASUREMENTS (Male / Female) Normal Values 2D ECHO LV Diastolic Diameter PLAX 4.9 cm 4.2 - 5.9 / 3.9 - 5.3 cm LV Systolic Diameter PLAX 3.1 cm IVS Diastolic Thickness 0.7 cm 0.6 - 1.0 / 0.6 - 0.9 cm LVPW Diastolic Thickness 1.1 cm 0.6 - 1.0 / 0.6 - 0.9 cm LV Relative Wall Thickness 0.4 LVOT Diameter 1.9 cm LA Volume Index 17.5 cm?/m? 16 - 28 cm?/m? Ascending Aorta Diameter 3.2 cm M-MODE AV Cusp Separation MM 1.1 cm DOPPLER AV Peak Velocity 138.0 cm/s AV Peak Gradient 7.6 mmHg AV Mean Gradient 4.0 mmHg AV Velocity Time Integral 24.8 cm LVOT Peak Velocity 102.0 cm/s LVOT Peak Gradient 4.2 mmHg LVOT Velocity Time Integral 20.0 cm LVOT Cardiac Index 2185.2 cm?/min?m? AV Area Cont Eq vti 2.3 cm? AV Area Cont Eq pk 2.1 cm? MV Area PHT 4.8 cm? Mitral E Point Velocity 79.1 cm/s Mitral A Point Velocity 81.3 cm/s Mitral E to A Ratio 1.0 LV E' Lateral Velocity 6.9 cm/s Mitral E to LV E' Lateral Ratio 11.5 LV E' Septal Velocity 3.1 cm/s Mitral E to LV E' Septal Ratio 25.1 TR Peak Velocity 162.5 cm/s TR Peak Gradient 10.6 mmHg PV Peak Velocity 85.5 cm/s PV Peak Gradient 2.9 mmHg FINDINGS Left Ventricle Normal left ventricular size, wall thickness, systolic function with no obvious regional wall motion abnormalities.There is grade I diastolic dysfunction of the left ventricle (impaired relaxation pattern). The ejection fraction is visually estimated at 60-65 %. Right Ventricle The right ventricle is normal in size and systolic function. Left Atrium The left atrium is normal by two-dimensional, color flow and Doppler imaging with no structural abnormalities, no thrombus formation present. Right Atrium The right atrium is normal by two-dimensional imaging, color flow and Doppler imaging with no structural abnormalities, no thrombus formation present. Atrial Septum The interatrial septum is normal to color flow Doppler and agitated saline imaging. Aorta The aorta is normal by two-dimensional, color flow and Doppler interrogation. Mitral Valve The mitral valve is normal by two-dimensional, color flow and Doppler interrogation. Trace mitral regurgitation. Aortic Valve The aortic valve is trileaflet and normal by two-dimensional, color flow and Doppler interrogation. There is no significant aortic valve regurgitation. Tricuspid Valve The tricuspid valve is normal by two-dimensional, color flow and Doppler interrogation. There is trace tricuspid valve regurgitation. Pulmonic Valve The pulmonic valve is not well visualized. There is no significant pulmonic valve regurgitation. Vessels The pulmonary artery appears normal. The inferior vena cava pulmonary and hepatic veins appear normal. Pericardium The pericardium is normal by two-dimensional imaging. There is no significant pericardial effusion. CONCLUSIONS Indication: stroke work up Bubble study is negative but recommend to strongly consider SHERRY if high index of clinical suspicion and to rule out any LA / SHYANN thrombus. Normal left ventricular size and function. Approximate ejection fraction is 60- 65%. Grade I diastolic dysfunction. Normal right ventricular size and function. Trace mitral and trace tricuspid regurgitation noted. Bob Sullivan (Electronically Signed) Final Date: 24 September 2025 15:33
[2025-09-23 16:46] LABS: Creatine Kinase 51 U/L (34-171); LDH (Lactate Dehydrogenase) 151 U/L (120-246); Procalcitonin 0.10 ng/ml (0.0-0.49)
[2025-09-23 16:54] LABS: Amphetamine/Methamp Scrn,U Negative (Negative); Barbiturate Screen,Urine Negative (Negative); Benzodiazepines Screen,Urine Negative (Negative); Benzoylecgonine Screen, Ur Negative (Negative); Fentanyl Screen,Urine Negative (Negative); Opiate Screen,Urine Negative (Negative); THC Screen,Urine Negative (Negative)
[2025-09-23] MEDS: POTASSIUM CHLORIDE 10% 20 MEQ/15 ML UDC 40 MEQ PO (17:18)
[2025-09-23] MEDS: Magnesium Sulfate 4 GM Ivpb 4 GM/50 ML BAG IV (17:27)
[2025-09-23 17:36] VITALS: BP 141/86; PULSE 84; RESP 25; TEMP 36.9; O2SAT 95
--- NOTE | 2025-09-23 17:57 | PC.NURSE ---
Pt. spouse is Roshan Joseph [phone].
--- NOTE | 2025-09-23 18:39 | PC.NURSE ---
pt. is alert and oriented x4. vital signs are stable. pt DID NOT report pain. pt. had NIH score is 0.
[2025-09-23 20:00] VITALS: BP 153/94; PULSE 83; PULSE 84; RESP 17; TEMP 37.1; O2SAT 97
[2025-09-23] MEDS: ATORVASTATIN CALCIUM 20 MG TABLET 40 MG PO (21:19)
[2025-09-23 21:58] VITALS: PULSE 87; RESP 19; RESP 98
--- NOTE | 2025-09-23 23:13 | ESPR_ITS ---
Documentation for date of: 09/23/25 Subjective Subjective Interval history: Patient was seen in telemetry today. No new symptoms/recurrence of similar symptoms after admission. Tolerating oral diet well. Slept well overnight. Exam - Neurology Vital Signs Temp Pulse Resp BP Pulse Ox O2 Del Method 98.7 F 87 19 153/94 H 97 Room Air 09/23/25 20:00 09/23/25 21:58 09/23/25 21:58 09/23/25 20:00 09/23/25 20:00 09/23/25 20:00 Narrative Exam GENERAL APPEARANCE: Well hydrated, well-nourished in no acute distress. HEENT: Normocephalic, atraumatic, extraocular movements intact. Pupils: Equal reacting to light and accommodation NECK: Supple, no JVD or bruits. CARDIOVASULAR: Heart: S1, S2 heard, regular without S3-S4 or murmur no rubs or gallops. LUNGS/CHEST: Clear to auscultation bilaterally. No rails, rhonchi, or wheezing. Normal inspection. ABDOMEN: Soft, nontender, with normal bowel sounds. No pulsatile masses. No rebound, rigidity, or guarding. Normal inspection and palpation. EXTREMITIES: Normal inspection and palpation. No edema, clubbing or cyanosis. SKIN: Warm and dry without rashes. Normal inspection. MUSCULOSKELETAL: No cervical, thoracic, lumbar or midline bony tenderness. Normal inspection. NEURO: Alert, awake and oriented x3. Cranial nerves: II through XII grossly intact. Speech and language: Normal with no dysarthria or dysphasia. Motor system: Tone and bulk: Normal: Strength: 5 out of 5 in all 4 extremities; No pronator drift noted. Deep tendon reflexes: 2+ bilaterally symmetrical. Plantar reflex: Downgoing bilaterally. Sensory system: Intact to all modalities of sensation bilaterally. Coordination: Intact to wplnaj-aubl-pvchw and btus-jlov-hszi test bilaterally. No ataxia, no dysmetria, or dysdiadochokinesia noted. No intention tremors noted. Gait: Normal. Toe, heel, tandem walk all are normal. Romberg: Negative. No signs of meningeal irritation noted. PSYCHIATRIC: Normal mood and affect. Objective Labs 09/23/25 14:13 09/23/25 14:13 Labs: Laboratory Results - last 24 hr 09/23/25 09/23/25 14:13 14:38 WBC 7.5 RBC 3.90 L Hgb 12.1 L Hct 34.8 L MCV 89 MCH 31.0 MCHC 34.8 RDW Std Deviation 39.8 Plt Count 205 Neut % (Auto) 65 Lymph % (Auto) 18 Antelope % (Auto) 11 Eos % (Auto) 4 Baso % (Auto) 1 Neut # (Auto) 4.9 Lymph # (Auto) 1.4 Antelope # (Auto) 0.9 H Eos # (Auto) 0.3 Baso # (Auto) 0.1 Immature Gran # (Auto) 0.03 H Absolute Nucleated RBC 0.00 Immature Gran % 0 Nucleated RBC % 0 PT 13.7 H INR 1.3 APTT 27.3 Sodium 141 Potassium 3.3 L Chloride 110 H Carbon Dioxide 22.2 Anion Gap 9 BUN 7 L Creatinine 1.0 Estim Creat Clear Calc Not Performed. eGFR > 60 BUN/Creatinine Ratio 7 L Glucose 96 Calculated Osmolality 279 Calcium 7.6 L Corrected Calcium 8.2 L Magnesium 1.5 L Total Bilirubin 0.7 AST 23 ALT 39 Alkaline Phosphatase 69 Lactate Dehydrogenase 151 Total Creatine Kinase 51 Troponin I < 0.002 Total Protein 5.2 L Albumin 3.3 L Globulin 1.9 L Albumin/Globulin Ratio 1.7 Procalcitonin 0.10 Ur Collection Type Clean Catch Urine Color Colorless A Urine Clarity Clear Urine pH 6.0 Ur Specific [place] 1.020 Urine Protein Negative Urine Glucose (UA) Negative Urine Ketones Negative Urine Blood Negative Urine Nitrite Negative Urine Bilirubin Negative Urine Urobilinogen (Auto) Negative Ur Leukocyte Esterase Negative Urine RBC 0 Urine WBC < 1 Ur Squamous Epith Cells 0 Urine Bacteria None Ur Culture Indicated? Not Indicated Urine Opiates Screen Negative Urine Fentanyl Screen Negative Ur Barbiturates Screen Negative U Amphetamin/Meth Scrn Negative U Benzodiazepines Scrn Negative U Cocaine Metab Screen Negative U Marijuana (THC) Screen Negative HCG (Qual) Negative Assessment & Plan Assessment and plan (1) Brain TIA: Status: Acute Assessment and plan: Differential diagnosis: Acute CVA/TIA, seizure follow-up with MRI brain, echocardiogram, EEG to evaluate further. Continue to monitor him closely for any recurrence. (2) Hypertension: Status: Chronic Assessment and plan: Permissive blood pressure control until the MRI is done
[2025-09-24] VITALS: BP 121/68; PULSE 75; PULSE 76; RESP 18; TEMP 36.9; O2SAT 96
--- NOTE | 2025-09-24 | XR_ITS ---
Examinations: MRI Brain without intravenous contrast. MRA brain without intravenous contrast. MRA carotids without intravenous contrast 3-D vascular reconstructions Date and time of exam: September 24, 2025, 0618 hours INDICATIONS: Confusion, left arm heaviness paresthesias spreading to the left face with metallic taste in the mouth beginning yesterday Technique: Multiple axial and sagittal images of the brain have been obtained MRA brain carotid images without contrast obtained, including 3-D postprocessing, vascular maximum intensity projection images Findings: Sellaturcica is not enlarged. The optic chiasm and infundibular stalk are not remarkable. Prepontine and interpeduncular cisterns are not enlarged. No localized enlargement of the medulla or carissa. Fourth ventricle and cerebellar tonsils normal in position. Subacute hemorrhage is not seen. Fourth ventricle is midline. Mass in the cerebellopontine angle region is not evident. 7th and 8th nerve complexes exhibits symmetry. Globes are symmetrical with no retro-orbital mass. Increased white matter signal prominent Diffusion-weighted images demonstrate no focus of restricted diffusion Mass-effect upon the ventricular system is not identified. MRA carotid images no carotid stenoses. MRA brain images no cerebral large vessel arterial occlusions. There is a moderate irregularity of the posterior cerebral artery branches, 3D image 16 of 20 Impression: Negative for acute hemorrhage, mass effect or midline shift No acute infarct. Prominent chronic microvascular white matter change. No significant carotid stenoses. No cerebral large vessel arterial occlusions or thrombus. Moderate arterial irregularity posterior cerebral arteries
[2025-09-24 04:00] VITALS: BP 121/68; PULSE 75; PULSE 87; RESP 20; TEMP 36.4; O2SAT 96
[2025-09-24 05:37] VITALS: BMI 31.4
[2025-09-24] MEDS: DIAZEPAM 2 MG TABLET PO (06:12)
[2025-09-24 06:44] LABS: Basophils # (Auto) 0.1 Thou/mm3 (0.0-0.2); Basophils % (Auto) 1 % (0-2.5); Eosinophils # (Auto) 0.4 Thou/mm3 (0.0-0.5); Eosinophils % (Auto) 5 % (0-10); Hematocrit 41.3 % (41.0-53.0); Hemoglobin 14.3 g/dL (13.5-16.0); Immature Granulocytes Auto 0.03 Thou/mm3 (0.00-0.00); Lymphocytes # (Auto) 1.7 Thou/mm3 (1.0-4.8); Lymphocytes % (Auto) 21 % (10-50); Mean Corpuscular HGB Conc 34.6 g/dl (31.0-37.0); Mean Corpuscular Hemoglobin 31.8 pg (25.0-35.0); Mean Corpuscular Volume 92 fL (80-100); Monocytes # (Auto) 1.0 Thou/mm3 (0.0-0.8); Monocytes % (Auto) 12 % (0-12); Neutrophils # (Auto) 5.0 Thou/mm3 (1.8-7.7); Neutrophils % (Auto) 61 % (37-80); Nucleated Red Blood Cell # 0.00 Thou/mm3 (0.00-0.00); Nucleated Red Blood Cell % 0 /100 WBC (0); Platelet Count 237 Thou/mm3 (140-440); RDW Standard Deviation 42.3 fL (35.1-43.9); Red Blood Count 4.50 Miln/mm3 (4.50-5.90); White Blood Count 8.3 Thou/mm3 (3.8-10.6)
[2025-09-24 07:07] LABS: Cardiac Risk Estimate 5.5 RATIO (4.0-6.7); Cholesterol 181 mg/dL (132-200); HDL Cholesterol 33 mg/dL (40-60); LDL Cholesterol,Calculated 85 mg/dL (0-130); Magnesium 2.3 mg/dL (1.6-2.6); Thyroid Stimulating Hormone 2.66 uIU/mL (0.55-4.78); Triglycerides 314 mg/dL (30-150)
[2025-09-24 08:00] VITALS: BP 130/76; PULSE 79; RESP 16; TEMP 36.7; O2SAT 97
--- NOTE | 2025-09-24 08:05 | PC.NURSE ---
packaging coordinator: Visited with pt this morning. Eating breakfast without issues, chatting normally. [employer] education discussed. 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 Partner may need the education - will check back later. Noted MRI is done but not read yet. Updated pt.
[2025-09-24 09:20] LABS: Alanine Aminotransferase 53 U/L (10-49); Albumin, Serum 4.6 gm/dL (3.4-4.8); Albumin/Globulin Ratio 2.3 (1.2-2.2); Alkaline Phosphatase 89 U/L (46-116); Anion Gap 13 (7-16); Aspartate Amino Transferase 37 U/L (0-34); BUN/Creatinine Ratio 8 Ratio (12-20); Bilirubin,Total 1.1 mg/dL (0.3-1.2); Blood Urea Nitrogen 10 mg/dL (9-23); Calcium 9.0 mg/dL (8.3-10.6); Calcium (Corrected) 9.0 mg/dL (8.5-10.1); Carbon Dioxide 24.8 mMol/L (20.0-31.0); Chloride 104 mMol/L (98-107); Creatinine (Component) 1.2 mg/dL (0.6-1.3); Estimated Creatinine Clearance 63.9 mL/min (>60); Globulin 2.0 gm/dL (2.3-3.5); Glucose 108 mg/dL (74-106); Osmolality,Calculated 283 (275-295); Potassium 4.1 mMol/L (3.4-5.1); Sodium 142 mMol/L (136-145); Total Protein 6.6 gm/dL (5.7-8.2); eGFR > 60 See Note
[2025-09-24 09:44] LABS: Glucose Estimated Average 108 mg/dL (80-131); Hemoglobin A1C 5.4 % Hgb (4.8-6.0)
--- NOTE | 2025-09-24 09:48 | RESP.EEG ---
eeg completed and ready for review. I will let Dr Root know it needs to be read.
[2025-09-24] MEDS: HEPARIN SOD INJ 5000 UNIT/ML VIAL IVP (09:50)
[2025-09-24 10:25] VITALS: PULSE 95; RESP 14; RESP 95
[2025-09-24 12:00] VITALS: BP 131/73; PULSE 81; RESP 18; TEMP 35.3; O2SAT 96
--- NOTE | 2025-09-24 12:10 | PC.SS ---
Patient John Paul Deleon is a 64 Year old male admitted for Stroke R/O. SS met with patient Role and Reason for encounter was discussed, patient was able to verify demographic information. Patient reports he lives at home with his , Roshan Deleon who he reports is his surrogate decision maker, [phone]. Patient reports prior to admission he was able to complete all ADL's independently, Patient does not utilize any source of DME. [facility] PCP is Shelly Campa at [facility]. At time of discharge patient will return back home, Roshan will provide transportation. Discharge: Home Next of kin: , Roshan Joseph
--- NOTE | 2025-09-24 13:37 | PC.PT ---
PT eval only. Patient is I with transfers and ambulation without AD.
--- NOTE | 2025-09-24 14:13 | ESDS_ITS ---
<Statement entered by Pranav Cage MD - 09/24/25 17:02> I saw and examined patient personally and supervised PGY 1 resident, Dr. Holley with formulating a management plan. I agree with the documentation with the exceptions as listed below. Patient presented with confusion and left-sided paresthesia which resolved while in the emergency department. Patient was admitted for stroke workup. CT brain and CTA were negative for acute hemorrhage, mass effect or LVO. MRI brain was negative for acute ischemic infarcts. EEG was also done which was normal. Transthoracic echocardiogram with bubble study did not show any signs of PFO or ASD. Recommend that patient follow-up with outpatient cardiology for cardiac risk stratification and assessment for occult atrial fibrillation. All patient's labs are now returning to his baseline. Patient is now clinically stable and fit for discharge to home. Plan of care discussed with Attending Dr. Robin Cage MD PGY 2 Disclaimer: This note was dictated by speech recognition. Minor errors in animal husbandry worker may be present due to voice recognition software. Planned Discharge Date 09/24/25 DS: Providers Provider Date of admission: 09/23/25 15:52 Primary care physician: Physician No Primary/Family Admitting Provider: Anthony Kelly DO Attending Provider on Admission: Anthony Kelly DO Consults: 09/23/25 13:50 Consult to Neurology / Tele-Neurology Routine Comment: Consulting Provider: [facility] 09/23/25 16:07 Referral Physical Therapy Routine Comment: Physician Instructions: 09/24/25 08:05 Consult to Neurology / Tele-Neurology Routine Comment: stroke work-up Consulting Provider: Deniz Rosas Attending Provider on DC: Anthony Kelly DO Discharging Provider: Joselito Holley DO DS: Diagnosis Problem List Completed Was Problem List Reviewed/Reconciled?: Yes Hospital Course Hospital Course Hospital course: Summary: John Paul Boyd is a 64-year-old male with a PMH of hypertension (2006) on atenolol, fatty liver disease (2019) on metformin, and hypercholesterolemia on pravastatin who presented on 09/23/25 with a chief complaint of left arm paresthesia and heaviness with subsequent left face paresthesia and metallic taste in the mouth. ER: In the ED, vitals showed: BP 161/96 HR 92 RR 20 Temp 98.3 SpO2 95% on room air CBC showed hemoglobin 12.1 but was otherwise WNL. Coagulation panel showed PT 13.7, INR 1.3, and APTT 27.3. CMP showed potassium 3.3, chloride 110, corrected calcium 8.2, magnesium 1.5, and normal procalcitonin 0.10. UA was bland with specific gravity 1.020. UDS was completely negative. Serological studies was negative for qualitative hCG. 09/23 CXR was unremarkable. 09/[address] was negative for acute hemorrhage, mass effect, or midline shift. 09/23 head/neck CTA was negative for significant neck arterial stenoses, cerebral large vessel arterial occlusions, or thrombus. 09/23 EKG showed normal sinus rhythm of HR 87 and normal QTc 435. 09/24 MRI brain negative for any acute stroke/acute intracranial processes 09/24 EEG normal 09/24 echocardiogram negative for PFO In the ED, patient was given p.o. potassium chloride 40 mEq x 1 and IV magnesium sulfate 4 g x 1; he was also started on p.o. Lipitor 40 mg nightly. Hospital: During patient's hospital course, he underwent work-up for CVA and seizure; head CT, head/neck CTA, brain MRI w/ MRA, and EEG all eventually returned negative for either of the above. He was also noted to have hypokalemia, hypocalcemia, and hypomagnesemia for which he had his electrolytes repleted. By 09/24, patient was deemed clinically stabilized and discharged home with aspirin and atorvastatin to be taken in the out-patient setting. The results of his echocardiogram can also be followed-up on outpatient. Patient is safe to discharge to home. Further discharge instructions below. ? You have been started on a medication aspirin as you likely had a TIA. This m edication is to prevent any future strokes. If you notice any signs of bleeding please stop medication and contact your PCP. ? We have changed your cholesterol medication to atorvastatin. ? Continue rest of your home medication as before. ? Follow-up with your primary care doctor for the results of your echocardiogram. ? Follow-up with neurologist, Dr. Rosas within 2 weeks. - Follow up with your primary care physician within 1 week of discharge. If you do not have a primary care physician, please follow up with the [facility] Residents clinic ([phone]) ? If you experience any new, worsening or persistent symptoms either call your primary doctor, or dial 911 or present to the emergency department. #Neurological symptoms concerning for CVA/TIA #Electrolyte derangements #Hypokalemia #Hypocalcemia #Hypomagnesemia #Primary hypertension #MASLD #Hiatal hernia #History of GI bleed #Obesity class I Status at Discharge Cognitive/Behavioral Status at Discharge: stable Functional Status at Discharge: independent ambulation Overall Status at Discharge: patient is back to baseline Patient's care plan was discussed with my attending, Dr. Kelly, and senior resident, Dr. Cage. Joselito Holley, DO Internal Medicine, PGY-1 Time Spent with Patient Time attestation: Total time spent providing and/or coordinating discharge services: Time spent: Greater than 30 minutes Exam Vital Signs Temp Pulse Resp BP Pulse Ox O2 Del Method 95.5 F L 81 18 131/73 H 96 Room Air 09/24/25 12:00 09/24/25 12:00 09/24/25 12:00 09/24/25 12:00 09/24/25 12:00 09/24/25 12:00 Narrative Exam General: Alert and oriented x 3, no acute distress. Skin: Warm, dry, intact, no obvious rash. Head: Normocephalic, atraumatic. Eye: Normal conjunctiva, PERRL. Anicteric. Throat: Oral mucosa moist. Cardiovascular: Slightly tachycardic rate and normal rhythm, no murmur, normal peripheral perfusion, no edema. Respiratory: Lungs are clear to auscultation, respirations non labored, no crackles, no wheezing. Gastrointestinal: Soft, nontender, non-distended. Psychiatric: Cooperative, appropriate affect. Neuro: Mental status: Alert, oriented, appropriately responding to commands. Speech/Language: Speech fluent, no word finding difficulty or paraphasic errors observed. Language-comprehension, repetition and naming intact. No dysarthria noted. Memory: Grossly recent and remote intact. Cranial Nerves: II: No visual deficits and visual ramirez full to confrontation. Pupils 3-5 mm size BL round, reactive to light. III, IV, : EOMI, no nystagmus, no ptosis, no APD, smooth pursuit without saccadic intrusion, conjugate horizontal gaze intact. V: Gross sensation intact in V1, V2 and V3 distribution to crude touch. Jaw str ength normal. VII: No facial asymmetry, able to smile symmetrically and BL good eye closure. VIII: Hearing intact in both ears but some degree of presbycusis of the right ear. IX, X: Symmetrical palate elevation, uvula in midline. XI: Symmetrical head rotation and shoulder shrug. IX, XII: Midline tongue protrusion. No fasciculations or atrophy noted. Sensory examination Crude touch in bilateral upper and lower extremity grossly intact. Motor examination No drift in bilateral upper extremity 5/5 strength in bilateral upper extremity 5/5 strength in bilateral lower extremity 2+ reflexes in biceps, triceps, brachioradialis, patellar, Achilles No Page's or ankle clonus Coordination Gbmklc-li-iyxs test and nowb-ol-zykf test performed without any difficulty. No dysmetria. Examination: BP(161/96),?Pulse(85),?Blood Glucose(125) 1A: Level of Consciousness - Alert; keenly responsive?+ 0 1B: Ask Month and Age - Both Questions Right?+ 0 1C: Blink Eyes & Squeeze Hands - Performs Both Tasks?+ 0 2: Test Horizontal Extraocular Movements - Normal?+ 0 3: Test Visual Ramirez - No Visual Loss?+ 0 4: Test Facial Palsy (Use Grimace if Obtunded) - Normal symmetry?+ 0 5A: Test Left Arm Motor Drift - No Drift for 10 Seconds?+ 0 5B: Test Right Arm Motor Drift - No Drift for 10 Seconds?+ 0 6A: Test Left Leg Motor Drift - No Drift for 5 Seconds?+ 0 6B: Test Right Leg Motor Drift - No Drift for 5 Seconds?+ 0 7: Test Limb Ataxia (FNF/Heel-Lozano) - No Ataxia?+ 0 8: Test Sensation - Normal; No sensory loss?+ 0 9: Test Language/Aphasia - Normal; No aphasia?+ 0 10: Test Dysarthria - Normal?+ 0 11: Test Extinction/Inattention - No abnormality?+ 0 NIHSS Score:?0 Discharge Plan Plan Patient Disposition: HOME (Self Care) Patient condition on transfer: Stable Care Plan Goals: ? You have been started on a medication aspirin as you likely had a TIA. This medication is to prevent any future strokes. If you notice any signs of bleeding please stop medication and contact your PCP. ? We have changed your cholesterol medication to atorvastatin. ? Continue rest of your home medication as before. ? Follow-up with your primary care doctor for the results of your echocardiogram. ? Follow-up with neurologist, Dr. Rosas within 2 weeks. - Follow up with your primary care physician within 1 week of discharge. If you do not have a primary care physician, please follow up with the [facility] Residents clinic ([phone]) ? If you experience any new, worsening or persistent symptoms either call your primary doctor, or dial 911 or present to the emergency department. Prescriptions/Referrals Prescriptions/Med Rec: New atorvastatin [Lipitor] 40 mg tablet 40 mg PO QPM 30 Days Qty: 30 2RF aspirin 81 mg Tablet,Delayed Release (Dr/Ec) 81 mg PO QDAY 30 Days Qty: 30 2RF Continued atenolol [Tenormin] 25 MG tablet 25 mg PO HS Qty: 0 loratadine [Claritin] 10 MG tablet 10 mg PO DAILY Qty: 0 Fiber Gummies 2 GM tablet,chewable 2 tab PO HS Qty: 0 metformin 500 mg Tablet 500 mg PO BID cholecalciferol (vitamin D3) [Vitamin D3] 25 mcg (1,000 unit) Capsule 25 mcg PO .THREE TIMES A WEEK Patient Comments: THREE DAYS A WEEK Discontinued pravastatin 10 mg Tablet 10 mg PO .QHS Referrals: No Primary/Family,Physician [Primary Care Provider] Deniz Rosas MD [Physician, Neurology] Patient/Caregiver Discharge Instructions Discharge Activity: activity as tolerated Education Materials: Intimacy After Stroke, Effects of a Stroke on the ..., The First Few Hours After a Stroke, Using Blood Thinners Anticoagulants, Exercise for a Healthier Heart, What Is Ischemic Stroke?, What Is a TIA?, Anatomy of the Brain, Hypertension Stroke Link, Measuring Your Pain, Discharge Instructions for Stroke, Discharge Instructions for ..., Risk Factors for Stroke, Stroke Regaining Movement, Stroke Prevention Activity, Your Heart Is at Risk, Arm Care After a Stroke, Blood Pressure Check Steps, ED TIA: Transient Ischemic Attack, Tests to Diagnose a Stroke Print Language: Upper Sorbian Stand Alone Forms: Disha Award Info., Patient Portal Info Letter Discharge Order Discharge Orders: Discharge (Routine); Ordered 09/24/25 Ordered By: Anthony Kelly Quality Discharge Quality Measures stroke Statin ordered >75 y/o:moderate or high intensity dose on DC: yes Statin ordered <75 y/o: high intensity dose on DC: yes Statin not ordered due to:: not indicated Anticoagulation ordered for A-fib or flutter (current or hx): not indicated Antithrombotic ordered on DC: not indicated (describe) Attestestation MD Attestation I have discussed and was present for the essential components of the discharge history, physical examination, diagnosis, and discharge treatment plan with the resident. I agree with the patient's discharge care as documented by the resident and amended herein by me. Cristobal Kelly DO. The patient understood all discharge instructions, all questions were answered satisfactorily. The patient was instructed to return to the Emergency Department is symptoms worsened or persisted. Patient will be discharged on aspirin for stroke prophylaxis as well as atorvastatin 40 mg daily due to ASCVD risk, all brain imaging was negative for acute stroke however patient may have had a TIA considering symptoms although brief, or focal in nature on his left side. Seizure unlikely. Patient was stable, afebrile, tolerating p.o. intake and ambulatory at time of discharge home. Although this document has been carefully reviewed, there may still be some phonetic and other typographical errors. These errors are purely grammatical due to imperfections in the software program and should not be construed in any way to compromise the substance of the patient's medical care during this visit.
== END 2025-09-24 14:00 | disposition home or self-care (01) ==
LOC: SERX 15:02 → SERHOLD 16:32 → S2NX 09-24 06:20 → SERHOLD 09-25 09:28 → S2NX 09-25 09:29
PROVIDERS: Registered Nurse General Practice; Admitting Provider Student in an Organized Health Care Education/Training Program; Emergency Provider Emergency Medicine; Visit Provider Student in an Organized Health Care Education/Training Program
DX: G45.9 Transient cerebral ischemic attack, unspecified (principal); R20.2 Paresthesia of skin; I10 Essential (primary) hypertension; K76.0 Fatty (change of) liver, not elsewhere classified; E66.811 Obesity, class 1; E78.00 Pure hypercholesterolemia, unspecified; E83.51 Hypocalcemia; E87.6 Hypokalemia; K44.9 Diaphragmatic hernia without obstruction or gangrene; E83.42 Hypomagnesemia; I48.91 Unspecified atrial fibrillation
CPT/HCPCS: 36415; 70450; 70496; 70498; 70544; 71045; 80053; 80061; 80307; 81001; 82550; 83036; 83615; 83735; 84145; 84443; 84484; 84703; 85025; 85610; 85730; 92610; 93005; 93306; 94664; 94762; 95816; 96374; 97161; 99283; A4649; G0378; J1644; J3475; Q9967; A9270